=== PATIENT | male | born 1975 | race Hispanic/Latino ===

== ENCOUNTER 2018-05-07 20:34 | Emergency (ER) | payer OTHER ==
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
[2018-05-07 21:50] VITALS: TEMP 98.2
[2018-05-07 23:22] VITALS: BP 132/67; PULSE 80; RESP 17; O2SAT 100
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
== END 2018-05-07 23:20 | disposition home or self-care (01) ==
LOC: ED 20:34
DX: M79.18 Myalgia, other site (principal); V03.90XA Pedestrian on foot injured in collision with car, pick-up truck or van, unspecified whether traffic or nontraffic accident, initial encounter; Y92.410 Unspecified street and highway as the place of occurrence of the external cause

== ENCOUNTER 2018-07-01 18:43 | Outpatient (CLI) | payer OTHER | END 2018-07-01 18:44 | disposition home or self-care (01) | LOC: RAD 18:43 ==